=== PATIENT | female | born 1975 | race African-American/Black ===

== ENCOUNTER 2021-02-23 14:34 | Inpatient (IN) | payer MEDICAID, MEDICARE, OTHER ==
[~2021-02-23] VITALS: Ht 162.6 cm; Wt 90.0 kg
[~2021-02-23 14:34] MED LIST: BECL10.62 IH; BENA10TA77 PO; BUPR150SR PO; CORTSOL OT; DARU800T PO; EMTR1TAB13 PO; FOLI-130 PO; LORA10TA7 PO; METF-446 PO; OMEP20 PO; RITO100T PO
[2021-02-23 15:00] LABS: BASOPHILS % (AUTO) 1.2 % (0.0-2.0); HEMATOCRIT 37.5 % (36-46); HEMOGLOBIN 12.3 g/dL (12.0-16.0); LYMPHOCYTES # (AUTO) 2.4 K/uL (1.0-4.8); LYMPHOCYTES % (AUTO) 29.2 % (22.0-44.0); MEAN CORPUSCULAR HEMOGLOBIN 25.6 pg (26.0-34.0); MEAN CORPUSCULAR HGB CONC 32.7 G/dL (31.0-37.0); MEAN CORPUSCULAR VOLUME 78 fL (80-100); MONOCYTES # (AUTO) 0.7 K/uL (0.1-1.0); NEUTROPHILS # (AUTO) 4.9 K/uL (1.8-7.7); NEUTROPHILS % (AUTO) 59.6 % (40.0-70.0); PLATELET COUNT (AUTO) 351 K/uL (150-450); RED CELL DISTRIBUTION WIDTH 15.4 % (11.5-14.5)
[2021-02-23] MEDS ORDERED: IOHEXOL 350 MG/ML 100 ML VIAL ONE (15:06)
[2021-02-23] MEDS ORDERED: SODIUM CHLORIDE 0.9% 100 ML ONE (15:06)
[2021-02-23] MEDS ORDERED: ASPIRIN 81 MG CHEWABLE TABLET PO ONE (15:15)
[2021-02-23 15:29] LABS: PROTHROMBIN TIME 10.9 SEC (9.4-11.6)
[2021-02-23 15:38] LABS: CALCIUM, TOTAL 9.4 mg/dL (8.8-10.5); CREATININE 1.21 mg/dL (0.60-1.30); POTASSIUM 4.6 mmol/L (3.5-5.1)
[2021-02-23 15:44] LABS: ALBUMIN 3.7 g/dL (3.4-5.0); BILIRUBIN,TOTAL 0.4 mg/dL (0.1-1.0); TOTAL PROTEIN, SERUM 8.5 g/dL (6.4-8.2)
[2021-02-23 15:55] LABS: COVID AG,FIA SOURCE NASOPHARYNGEAL
[2021-02-23] MEDS ORDERED: ONDANSETRON HCL 4 MG/2 ML VIAL IVP PRN ×2 (16:00→17:00)
[2021-02-23] MEDS ORDERED: ACETAMINOPHEN 325 MG TABLET PO PRN ×2 (16:00→17:00)
[2021-02-23] MEDS ORDERED: IPRATROPIUM BROMIDE 0.5 MG/2.5 ML NEB SOLUTION NEB PRN (17:00)
[2021-02-23] MEDS ORDERED: ALBUTEROL SULFATE 2.5 MG/0.5 ML NEB SOLUTION NEB PRN (17:00)
[2021-02-23] MEDS ORDERED: MAGNESIUM HYDROXIDE SUSPENSION 30 ML UDCUP PO PRN (17:00)
[2021-02-23] MEDS ORDERED: BISACODYL 10 MG RECTAL RECTAL SUPPOSITORY PR PRN (17:00)
[2021-02-23] MEDS ORDERED: DOCUSATE SODIUM 100 MG CAPSULE PO PRN (17:00)
[2021-02-23] MEDS ORDERED: 0.9% SODIUM CHLORIDE 10 ML SYRINGE IVP PRN (17:00)
[2021-02-23] MEDS ORDERED: DEXTROSE 50%-WATER 25 GM/50 ML SYRINGE IVP PRN (17:00)
[2021-02-23] MEDS ORDERED: LANS30CA55 PO (17:05)
[2021-02-23] MEDS ORDERED: CLOP75TA32 PO (17:05)
[2021-02-23] MEDS ORDERED: BISA5TAB12 PO (17:05)
[2021-02-23] MEDS ORDERED: MONT-40 PO (17:05)
[2021-02-23] MEDS ORDERED: PREG75CA75 PO (17:05)
[2021-02-23] MEDS ORDERED: ASPI-1444 PO (17:05)
[2021-02-23] MEDS ORDERED: ATOR-2 PO (17:05)
[2021-02-23] MEDS ORDERED: METO-391 PO (17:05)
[2021-02-23] MEDS ORDERED: BICT1TAB PO (17:05)
[2021-02-23] MEDS ORDERED: METF-911 PO (17:05)
[2021-02-23] MEDS ORDERED: CETI10TA58 PO (17:05)
[2021-02-23] MEDS ORDERED: LEVE500T20 PO (17:05)
[2021-02-23] MEDS ORDERED: DULO60CA98 PO (17:05)
[2021-02-23] MEDS ORDERED: DULA3PEN SQ (17:05)
[2021-02-23] MEDS ORDERED: ARIP2TAB27 PO (17:05)
[2021-02-23] MEDS ORDERED: SPIR-37 PO (17:05)
[2021-02-23] MEDS ORDERED: EMPA1TAB19 PO (17:05)
[2021-02-23] MEDS ORDERED: GLIP5TAB97 PO (17:05)
[2021-02-23] MEDS ORDERED: LUBI24CA2 PO (17:05)
[2021-02-23] MEDS ORDERED: BENA40TA92 PO (17:05)
[2021-02-23 20:12] LABS: APPEARANCE,URINE CLEAR (CLEAR); BILIRUBIN,URINE NEGATIVE (NEGATIVE); GLUCOSE, URINE (UA) >=1000 mg/dL (NEGATIVE); KETONES,URINE NEGATIVE (NEGATIVE); LEUKOCYTE ESTERASE ,URINE NEGATIVE (NEGATIVE); NITRATE,URINE NEGATIVE (NEGATIVE); OCCULT BLOOD,URINE NEGATIVE (NEGATIVE); PROTEIN,URINE NEGATIVE (NEGATIVE); UROBILINOGEN,URINE 0.2 mg/dL (<=1.0)
[2021-02-23 20:16] LABS: BACTERIA,URINE Rare /HPF (None Seen); RBC,URINE None Seen /HPF (0-2); WBC,URINE 0-2 /HPF (0-5)
[2021-02-23] MEDS: ATORVASTATIN CALCIUM 40 MG TABLET PO SCH (20:55)
[2021-02-23] MEDS: APIXABAN 5 MG TABLET PO SCH (20:55)
[2021-02-23] MEDS: BuPROPion HCL 150 MG SR TABLET PO SCH (20:55)
[2021-02-24 05:07] LABS: BASOPHILS % (AUTO) 0.9 % (0.0-2.0); HEMATOCRIT 37.9 % (36-46); HEMOGLOBIN 12.3 g/dL (12.0-16.0); LYMPHOCYTES # (AUTO) 2.7 K/uL (1.0-4.8); LYMPHOCYTES % (AUTO) 30.6 % (22.0-44.0); MEAN CORPUSCULAR HEMOGLOBIN 25.6 pg (26.0-34.0); MEAN CORPUSCULAR HGB CONC 32.5 G/dL (31.0-37.0); MEAN CORPUSCULAR VOLUME 79 fL (80-100); MONOCYTES # (AUTO) 0.9 K/uL (0.1-1.0); MONOCYTES % (AUTO) 9.8 % (2.0-9.0); NEUTROPHILS % (AUTO) 57.7 % (40.0-70.0); PLATELET COUNT (AUTO) 337 K/uL (150-450); RED BLOOD CELL COUNT(AUTO) 4.83 MIL/uL (4.00-5.20); RED CELL DISTRIBUTION WIDTH 15.5 % (11.5-14.5)
[2021-02-24 05:25] LABS: HEMOGLOBIN A1C 9.8 % (3.8-5.6)
[2021-02-24 05:33] LABS: ALBUMIN 3.6 g/dL (3.4-5.0); BILIRUBIN,TOTAL 0.3 mg/dL (0.1-1.0); CALCIUM, TOTAL 9.6 mg/dL (8.8-10.5); CHOL/HDL RATIO 2.6 (3.9-5.7); CREATININE 1.22 mg/dL (0.60-1.30); FREE T4 (FREE THYROXINE) 1.15 ng/dL (0.76-1.46); POTASSIUM 4.9 mmol/L (3.5-5.1); THYROID STIMULATING HORMONE 0.92 uIU/mL (0.36-3.74); TOTAL PROTEIN, SERUM 8.3 g/dL (6.4-8.2)
[2021-02-24] MEDS: APIXABAN 5 MG TABLET PO SCH ×2 (09:49→22:12)
[2021-02-24] MEDS: BuPROPion HCL 150 MG SR TABLET PO SCH ×2 (09:49→22:12)
[2021-02-24] MEDS: LORATADINE 10 MG TABLET PO SCH (09:49)
[2021-02-24] MEDS: OMEPRAZOLE 20 MG CAPSULE PO SCH (09:49)
[2021-02-24] MEDS: FOLIC ACID 1 MG TABLET PO SCH (09:49)
[2021-02-24 21:15] VITALS: BP 107/70
[2021-02-24] MEDS: INSULIN LISPRO 100 UNITS/ML SQ PRN (22:10)
[2021-02-24] MEDS: ATORVASTATIN CALCIUM 40 MG TABLET PO SCH (22:12)
[2021-02-24] MEDS: BECLOMETHASONE DIPR HFA 80 MCG/PUFF 10.6 GM INHALER IH SCH (22:12)
[2021-02-25 00:53] VITALS: BP 101/66
[2021-02-25] MEDS ORDERED: INFLUENZA VIRUS VACCINE QVS 2021-22 (6MO+)/PF 60 MCG/0.5 ML SYRINGE IM. ONE (02:15)
[2021-02-25 04:59] VITALS: BP 110/67
[2021-02-25] MEDS: INSULIN LISPRO 100 UNITS/ML SQ PRN (05:51)
[2021-02-25 07:38] VITALS: BP 100/74
[2021-02-25] MEDS: BuPROPion HCL 150 MG SR TABLET PO SCH (08:42)
[2021-02-25] MEDS: LORATADINE 10 MG TABLET PO SCH (08:42)
[2021-02-25] MEDS: OMEPRAZOLE 20 MG CAPSULE PO SCH (08:42)
[2021-02-25] MEDS: APIXABAN 5 MG TABLET PO SCH (08:43)
[2021-02-25] MEDS: FOLIC ACID 1 MG TABLET PO SCH (08:43)
[2021-02-25] MEDS: BECLOMETHASONE DIPR HFA 80 MCG/PUFF 10.6 GM INHALER IH SCH (08:44)
[2021-02-25 11:17] VITALS: BP 125/90
[2021-02-25 11:56] LABS: GLUCOMETER DEV NAME(LOC) 5N.3; GLUCOSE,POINT OF CARE 216 MG/DL (70-110)
[2021-02-25] MEDS ORDERED: ATOR40TA71 PO (12:40)
[2021-02-25] MEDS ORDERED: APIX5TAB PO (12:49)
[2021-02-25 15:02] VITALS: BP 118/82
[2021-02-25 17:47] LABS: GLUCOMETER DEV NAME(LOC) 5N.1C; GLUCOSE,POINT OF CARE 258 MG/DL (70-110)
== END 2021-02-25 15:35 | disposition home or self-care (01) | DRG 47 ==
LOC: EMS 14:36 → 5S 02-24 18:34
PROVIDERS: ADMIT Internal Medicine; ATTEND Internal Medicine
DX: G45.9 Transient cerebral ischemic attack, unspecified (principal); B20 Human immunodeficiency virus [HIV] disease; I11.9 Hypertensive heart disease without heart failure; I69.354 Hemiplegia and hemiparesis following cerebral infarction affecting left non-dominant side; E11.9 Type 2 diabetes mellitus without complications; Z20.822 Contact with and (suspected) exposure to COVID-19; G40.909 Epilepsy, unspecified, not intractable, without status epilepticus; J44.9 Chronic obstructive pulmonary disease, unspecified; Z79.01 Long term (current) use of anticoagulants; Z79.899 Other long term (current) drug therapy; Z79.84 Long term (current) use of oral hypoglycemic drugs; Z87.891 Personal history of nicotine dependence; Z88.0 Allergy status to penicillin; Z91.013 Allergy to seafood; Z91.018 Allergy to other foods
CPT/HCPCS: 70496; 70498; 70551; 71045; 80053; 80061; 81001; 82962; 83036; 84439; 84443; 84484; 85025; 85610; 93005; 93306; 97162; 99291; J3535; J7050; Q9967; 36415-L1; 36415-TC; 70450; 70450-TC